=== PATIENT | female | born 1965 | race American Indian/Alaskan Native ===

== ENCOUNTER → 2024-09-22 | Outpatient (CLI) | payer MEDICAID, SELFPAY ==
--- NOTE | 2024-09-22 10:30 | XR_ITS ---
Examination: Abdomen sonogram, complete Date and time of exam: September 22, 2024 11:00 AM Indications: Preop colonoscopy, unspecified abdominal pain diagnosis. Technique: Multiple real-time grayscale transabdominal sonographic images of the abdomen have been obtained. Findings: Absent gallbladder Common bile duct 0.7 cm no stones Pancreatic head 2.8 cm Aorta not enlarged Liver 12.4 cm fatty infiltration smooth contour no focal liver lesions Normal hepatopedal portal venous flow Patent IVC Right kidney 10.4 x 4.2 x 4.0 cm cortex 1.5 cm Left kidney 10.7 x 4.8 x 4.2 cm renal cortex 1.7 cm Mild to moderate bilateral renal parenchymal scar formation Mild left hydronephrosis Spleen 10.0 cm Impression: Absent gallbladder No common bile duct stones Fatty liver no focal liver lesions Mild to moderate bilateral renal parenchymal scar formation Mild left hydronephrosis, clinical correlation advised, consider CT scan abdomen pelvis without contrast follow-up to assess etiology of the left hydronephrosis
== END | disposition home or self-care (01) ==
LOC: CDIM 10:21
PROVIDERS: PCP Physician Assistant; Referring Provider Internal Medicine Gastroenterology; Visit Provider Internal Medicine Gastroenterology
DX: K76.0 Fatty (change of) liver, not elsewhere classified (principal); N28.89 Other specified disorders of kidney and ureter; N13.30 Unspecified hydronephrosis; Z90.49 Acquired absence of other specified parts of digestive tract
CPT/HCPCS: 76700